=== PATIENT | female | born 1975 | race African-American/Black ===

== ENCOUNTER → 2021-01-15 | Day surgery (SDC) | payer OTHER ==
[~2021-01-15] MED LIST: IRON INFUSIONS IV; KLOR-CON M2020 MEQ PO; LYRICA150 MG PO; OXYCODONE HCL 55 MG PO; SUPER THERAVIT1 EACH PO; TRIAMTERENE-HC1 EAC3 PO; ZYRTEC10 M5 PO
[2021-01-15 06:48] LABS: HEMATOCRIT 43.1 % (37.0-47.0); HEMOGLOBIN 14.6 gm/dL (12.0-15.0); MCH 28.5 pg (26.0-34.0); MPV 7.7 fl. (7.2-11.1); RBC 5.13 mil/uL (4.20-5.00); WBC 6.9 thou/uL (4.0-11.0)
[2021-01-15 06:59] LABS: CALCIUM 9.8 mg/dL (8.5-10.1); POTASSIUM 3.2 mmol/L (3.5-5.1)
--- NOTE | 2021-01-15 11:10 | EKG ---
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
--- NOTE | 2021-01-15 11:19 | OP ---
[address] [address] OPERATIVE REPORT Name: DESIREE BEST Room: [facility]#: [id number] Admission: 01/15/21 Attend Phys: Nj Canales Discharge: Date of : 77 Report #: [id number] THIS REPORT FOR: cc: Yue Olea MD,Yue Boss,Andres Kearns DO ~ cc: Yue Olea DATE OF SURGERY: 01/15/2021 PREOPERATIVE DIAGNOSES: Epigastric hernia, possible epigastric mass. POSTOPERATIVE DIAGNOSIS: Epigastric hernia. SURGEON: Andres Boss DO ASSISTANTS: Barrington Wright DO, PGY5 and Raghavendra PGY1. OPERATION PERFORMED: Primary repair of epigastric hernia and excision of subcutaneous fat. ANESTHESIA: General and local. ESTIMATED BLOOD LOSS: 5. SPECIMEN: Subcutaneous fat. COMPLICATIONS: None. HISTORY OF PRESENT ILLNESS: The patient is a 45-year-old female who presented to the office with complaint of feeling a lump in her epigastrium. We discussed exploration, possible hernia repair and possible mass excision at length. The risks, benefits and alternatives were discussed at length and she agreed to proceed with surgery. DESCRIPTION OF PROCEDURE: After consent was obtained, the patient was taken to the operating room and placed in the supine position. SCDs to bilateral lower extremities, safety belt placed across the patient's waist. Antibiotics were given for surgical prophylaxis. The patient underwent general endotracheal anesthesia without any complication. The patient's abdomen was prepped and draped in the standard sterile fashion. Timeout was performed to confirm the patient and procedure. A 10 blade scalpel was used to make an incision over the suspected epigastric mass in a vertical fashion. Electrocautery was used for hemostasis and to dissect down to level of the fascia. Once the fascia was encountered, this area was explored at length and just off at midline, we did find a small defect in the fascia that was primarily repaired with a 0 [place] [address] OPERATIVE REPORT Name: MARIA E BESTHelena KELLEY Room: [facility]#: [id number] Admission: 01/15/21 Attend Phys: Nj Canales Discharge: Date of : 77 Report #: [id number] in a [id number] fashion. There was some firm surrounding fatty tissue that was excised and sent for pathologic evaluation. At this point after no more evidence of hernia, we reapproximated subcutaneous tissue with a running 3-0 Vicryl. Skin was reapproximated with subcuticular 4-0 Monocryl. The 30 mL Marcaine was injected for local anesthesia. Skin glue was applied. All needle, instrument and sponge count correct x 2 at the end of the case. The patient was awoken from general anesthesia and transferred to PACU in stable condition. <ELECTRONICALLY SIGNED> By: Andres Boss DO 01/15/21 1119 0820 [id number] Boss DO /nt
--- NOTE | 2021-01-16 17:09 | PATH ---
[address] [address] PATHOLOGY RPT PROCEDURE Name: DESIREE BEST Room: [facility]#: [id number] Admission: 01/15/21 Date of : 77 Discharge: Report #: [id number] Path Case #: [id number] [facility] Accession Number: [id number] . 01 Material submitted: . abdomen - SUBCUTANEOUS FAT . 01 Clinical history: . HERNIA REPAIR, EPIGASTRIC EPIGASTRIC HERNIA . 02 Diagnosis: Subcutaneous fat: - Benign fat. (JOHAN:josh; 01/16/2021) [facility] [place]/16/20[place] 1304 Local . 02 Electronically signed: . Alan Ngo MD, Pathologist NPI- [id number] . 01 Gross description: . Fixative: Formalin Labeled: Subcutaneous fat (verified as "abdomen" per the problem specimen form) Specimen received: Two segments of bright yellow lobulated tissue Dimensions: 2.7 x 2.4 x 1.2 cm in aggregate cm External surface: Shaggy Cut surface: Yellow-reyes, lobulated . Building Equipment Operator sections are submitted in cassette A1. (CAA; 01/15/2021) [facility]/QA 01/16/2021 1304 Local . 02 Pathologist provided ICD-10: K43.9 . 02 CPT . 158477 Specimen Comment: A courtesy copy of this report has been sent to [phone] Specimen Comment: [phone] Specimen Comment: Report sent to / DR MATAMOROS Performed at: [address] [id number] MD Corey Bazan MD Phone: [phone] Performed at: 02 [place] [address] PATHOLOGY RPT PROCEDURE Name: DESIREE BEST WARREN Room: [facility]#: [id number] Admission: 01/15/21 Date of : 77 Discharge: Report #: [id number] Path Case #: [id number] [address] [place], [place] [id number] MD Alan Ngo MD Phone: [phone]
== END | disposition home or self-care (01) ==
LOC: M.SUR 06:00
PROVIDERS: ATTEND Surgery
DX: K43.9 Ventral hernia without obstruction or gangrene (principal); Z20.822 Contact with and (suspected) exposure to COVID-19; Z88.8 Allergy status to other drugs, medicaments and biological substances